=== PATIENT | female | born 1990 | race American Indian/Alaskan Native ===

== ENCOUNTER 2018-12-16 08:27 | Emergency (ER) | payer OTHER ==
[2018-12-16 08:35] VITALS: BP 117/56
--- NOTE | 2018-12-16 09:32 | Emergency Department Report ---
Vomiting/Diarrhea - HPI Chief Complaint: Nausea/Vomiting/Diarrhea Stated Complaint: 11 WKS /LIGHT HEAD/N Duration: 1 Day Severity: mild Nausea/Vomiting Severity: Mild Diarrhea Severity: None Pain Severity: None Symptoms: Yes Able to Tolerate Fluids, No Watery Diarrhea, No Bloody diarrhea, No Fever, No Recent Unusual Foods, No Recent Untreated Water, No Recent use of Antibiotics, No Family w/ Similar Symptoms, No Contacts w/ Similar Symptoms, No Rash, No Hematuria, No Recent URI Symptoms Other History: This is a 28 year-old female who presents to the emergency room with nausea and lightheadedness since yesterday. Patient states she woke feeling worse than yesterday. Patient reports she is 11 weeks and followed by [facility]. Last menstrual period 09/13, . She denies vomiting, vaginal discharge, vaginal bleeding, chest pain, abdominal pain, or back pain. ED Review of Systems ROS: Stated complaint: 11 WKS /LIGHT HEAD/N Other details as noted in HPI Constitutional: denies: chills, fever Respiratory: denies: cough, shortness of breath, wheezing Cardiovascular: denies: chest pain, palpitations Gastrointestinal: nausea. denies: abdominal pain, vomiting, diarrhea Musculoskeletal: denies: back pain, joint swelling, arthralgia Skin: denies: rash, lesions Neurological: denies: headache, weakness, paresthesias Psychiatric: denies: anxiety, depression ED Past Medical Hx - Past Medical History Previous Medical History?: No - Surgical History Past Surgical History?: No - Social History Smoking Status: Never Smoker Substance Use Type: None - Medications Home Medications: Home Medications Medication Instructions Recorded Confirmed Last Taken Type Nitrofurantoin [place]/M-Cryst 100 mg PO Q12HR #10 capsule 12/16/18 Unknown Rx [Macrobid CAP] Ondansetron [Zofran Odt] 4 mg PO Q8HR PRN #20 tab.rapdis 12/16/18 Unknown Rx Vomiting Diarrhea Exam - Exam General: Vital signs noted. No distress. Alert and acting appropriately. HEENT: Yes Moist Mucous Membranes, No Pharyngeal Erythema, No Pharyngeal Exudates, No Rhinorrhea, No Conjuctival Injection, No Frontal Tenderness, No Maxillary Tenderness Neck: No Adenopathy, No Rigidity Lungs: Yes Clear Lung Sounds, Yes Good Air Exchange, No Wheezes, No Stridor, No Cough, No Nasal Flaring, No Retractions, No Use of Accessory Muscles Heart exam: Regular: Yes, Murmur: No, Tachycardia: No Abdomen: Tenderness: No, Peritoneal Signs: No, Distention: No, Hyperactive Bowel sounds: No Skin exam: Rash: No, Edema: No, Normal turgor: Yes Neurologic: Alert and oriented, no deficits. Musculoskeletal: Unremarkable. ED Course Vital Signs 12/16/18 08:33 Temperature 98.3 F Pulse Rate 91 H Respiratory 16 Rate Blood Pressure 117/56 O2 Sat by Pulse 95 Oximetry ED Medical Decision Making - Lab Data Result diagrams: 12/16/18 09:37 12/16/18 09:37 Lab Results 12/16/18 12/16/18 12/16/18 Range/Units 09:19 09:37 09:37 WBC 8.3 (4.5-11.0) K/mm3 RBC 3.89 (3.65-5.03) M/mm3 Hgb 11.9 (10.1-14.3) gm/dl Hct 35.1 (30.3-42.9) % MCV 90 (79-97) fl MCH 31 (28-32) pg MCHC 34 (30-34) % RDW 14.4 (13.2-15.2) % Plt Count 248 (140-440) K/mm3 Sodium 138 (137-145) mmol/L Potassium 3.8 (3.6-5.0) mmol/L Chloride 101.1 (98-107) mmol/L Carbon Dioxide 22 (22-30) mmol/L Anion Gap 19 mmol/L BUN 10 (7-17) mg/dL Creatinine 0.5 L (0.7-1.2) mg/dL Estimated GFR > 60 ml/min BUN/Creatinine Ratio 20 % Glucose 89 (65-100) mg/dL Calcium 8.9 (8.4-10.2) mg/dL HCG, Quant (0-4) mIU/mL Urine Color Yellow (Yellow) Urine Turbidity Slightly-cloudy (Clear) Urine pH 6.0 (5.0-7.0) Ur Specific [place] 1.011 (1.003-1.030) Urine Protein <15 mg/dl (Negative) mg/dL Urine Glucose (UA) Neg (Negative) mg/dL Urine Ketones Neg (Negative) mg/dL Urine Blood Sm (Negative) Urine Nitrite Neg (Negative) Urine Bilirubin Neg (Negative) Urine Urobilinogen < 2.0 (<2.0) mg/dL Ur Leukocyte Esterase Lg (Negative) Urine WBC (Auto) 2.0 (0.0-6.0) /HPF Urine RBC (Auto) 7.0 (0.0-6.0) /HPF U Epithel Cells (Auto) 2.0 (0-13.0) /HPF Urine Bacteria (Auto) 1+ (Negative) /HPF Urine Mucus Few /HPF Urine HCG, Qual Positive A (Negative) 12/16/18 Range/Units 09:37 WBC (4.5-11.0) K/mm3 RBC (3.65-5.03) M/mm3 Hgb (10.1-14.3) gm/dl Hct (30.3-42.9) % MCV (79-97) fl MCH (28-32) pg MCHC (30-34) % RDW (13.2-15.2) % Plt Count (140-440) K/mm3 Sodium (137-145) mmol/L Potassium (3.6-5.0) mmol/L Chloride (98-107) mmol/L Carbon Dioxide (22-30) mmol/L Anion Gap mmol/L BUN (7-17) mg/dL Creatinine (0.7-1.2) mg/dL Estimated GFR ml/min BUN/Creatinine Ratio % Glucose (65-100) mg/dL Calcium (8.4-10.2) mg/dL HCG, Quant 09432 H (0-4) mIU/mL Urine Color (Yellow) Urine Turbidity (Clear) Urine pH (5.0-7.0) Ur Specific [place] (1.003-1.030) Urine Protein (Negative) mg/dL Urine Glucose (UA) (Negative) mg/dL Urine Ketones (Negative) mg/dL Urine Blood (Negative) Urine Nitrite (Negative) Urine Bilirubin (Negative) Urine Urobilinogen (<2.0) mg/dL Ur Leukocyte Esterase (Negative) Urine WBC (Auto) (0.0-6.0) /HPF Urine RBC (Auto) (0.0-6.0) /HPF U Epithel Cells (Auto) (0-13.0) /HPF Urine Bacteria (Auto) (Negative) /HPF Urine Mucus /HPF Urine HCG, Qual (Negative) - Medical Decision Making Patient was examined by me. Vitals are normal and patient is in no acute distress. Obtained a urinalysis, BMP, CBC, hCG qual and quant. There is signs of possible early UTI. Patient will be treated with macrobid. Start zofran ODT for nausea during . Patient denies vaginal bleeding, vomiting, vaginal discharge, abdominal pain or back pain. There is no suspicion of threatened miscarriage. Patient informed of results. Follow-up with [facility] for continued care. Plan discussed with patient to discharge home and treat outpatient. He agrees with ER plan. Patient discharged home in stable condition. Follow up with PCP in 2-3 days. Critical care attestation.: If time is entered above; I have spent that time in minutes in the direct care of this critically ill patient, excluding procedure time. ED Disposition Clinical Impression: Nausea and vomiting during , Dizziness Acute cystitis during Qualifiers: Trimester: first trimester Qualified Code(s): O23.11 - Infections of bladder in , first trimester Disposition: DC- TO HOME OR SELFCARE Is pt being admited?: No Does the pt Need Aspirin: No Condition: Stable Instructions: Morning Sickness (ED), Urinary Tract Infection in Women (ED) Additional Instructions: Increase fluid intake to 1L to 2L daily. Complete full course of antibiotics as prescribed. Avoid drinking alcohol while taking antibiotics and for 24 hours after completion. Follow up with primary care provider in 2-3 days. Prescriptions: Nitrofurantoin [place]/M-Cryst [Macrobid CAP] 100 mg PO Q12HR #10 capsule Ondansetron [Zofran Odt] 4 mg PO Q8HR PRN #20 tab.rapdis PRN Reason: Nausea And Vomiting Referrals: TONIA MCKEON MD [Primary Care Provider] - 3-5 Days [facility] [Provider Group] - 3-5 Days [facility] [Provider Group] - 3-5 Days [facility] [Provider Group] - 3-5 Days Forms: Work/School Release Form(ED) Time of Disposition: 11:00
[2018-12-16 09:59] LABS: Hematocrit 35.1 % (30.3-42.9); Hemoglobin 11.9 gm/dl (10.1-14.3); Mean Corpuscular HGB Conc 34 % (30-34); Mean Corpuscular Volume 90 fl (79-97); Platelet Count 248 K/mm3 (140-440); Red Blood Count 3.89 M/mm3 (3.65-5.03); Red Cell Distribution Width 14.4 % (13.2-15.2)
[2018-12-16 10:20] LABS: BUN/Creatinine Ratio 20; Blood Urea Nitrogen 10 mg/dL (7-17); Calcium 8.9 mg/dL (8.4-10.2); Hemolysis Index 6
[2018-12-16] MEDS ORDERED: ZOFRAN ODT PO ONE (10:28)
[2018-12-16 10:39] LABS: Bacteria,Urine 1+ /HPF (Negative); Bilirubin,Urine NEG (Negative); Blood,Urine SM (Negative); Color,Urine Yellow (Yellow); Mucus,Urine FEW /HPF; Protein,Urine <15 mg/dL mg/dL (Negative); Urobilinogen,Urine < 2.0 mg/dL (<2.0)
[2018-12-16 10:41] LABS: HCG Qualitative,Urine Positive (Negative)
== END 2018-12-16 11:07 | disposition home or self-care (01) ==
LOC: ED 08:27
DX: O21.8 Other vomiting complicating pregnancy (principal); O23.11 Infections of bladder in pregnancy, first trimester; O26.891 Other specified pregnancy related conditions, first trimester; R42 Dizziness and giddiness; Z3A.11 11 weeks gestation of pregnancy
CPT/HCPCS: 36415; 80048; 81001; 81025; 84702; 85027; Q0162

== ENCOUNTER 2019-05-26 20:09 | Emergency (ER) | payer SELFPAY ==
[2019-05-26 20:22] VITALS: BP 126/63
== END 2019-05-26 21:45 | disposition left against medical advice (07) ==
LOC: ED 20:09
DX: R42 Dizziness and giddiness (principal); Z53.21 Procedure and treatment not carried out due to patient leaving prior to being seen by health care provider

== ENCOUNTER 2019-06-10 05:52 | Inpatient (IN) | payer MEDICAID, OTHER ==
[2019-06-10] MEDS: LACTATED RINGERS 1,000 ML IV SCH ×2 (06:20→07:24)
[2019-06-10] MEDS ORDERED: LACTATED RINGERS 2,000 ML ONE (06:50)
[2019-06-10] MEDS ORDERED: ceFAZolin/Water 2 GM/20 ML 2 GM/20 ML SYRINGE IV NR (07:00)
[2019-06-10] MEDS ORDERED: OXYTOCIN 20 UNIT/1000ML DRIP 20 UNITS/1,000 ML BAG IV SCH ×2 (07:00→09:00)
--- NOTE | 2019-06-10 07:09 | History and Physical Report ---
History of Present Illness Date of examination: 06/10/19 Date of admission: 06/10/19 05:52 Chief complaint: Primary C Section History of present illness: Pt is a 28yo BF EDC 07/03/19; EGA 36 5/7 weeks presents for Primary C Section due to complete placenta previa per [facility]. She received care at [facility] since 18 weeks and co-managed by [facility] for complete placenta. records are available and GBS is unknown. Past History Past Medical History: no pertinent history Past Surgical History: no surgical history Social history: no significant social history, single - Obstetrical History Expected Date of Delivery: 07/03/19 Actual Gestation: 36 Week(s) 5 Day(s) Medications and Allergies Allergies Allergy/AdvReac Type Severity Reaction Status Date / Time latex Allergy Hives Verified 06/10/19 06:52 Home Medications Medication Instructions Recorded Confirmed Last Taken Type Nitrofurantoin [place]/M-Cryst 100 mg PO Q12HR #10 capsule 12/16/18 Unknown Rx [Macrobid CAP] Ondansetron [Zofran Odt] 4 mg PO Q8HR PRN #20 tab.rapdis 12/16/18 Unknown Rx Active Meds: Active Medications Citric Acid/Sodium Citrate (Bicitra) 30 ml PO ONCE ONE Stop: 06/10/19 06:54 Famotidine (Pepcid) 20 mg IV ONCE ONE Stop: 06/10/19 06:54 Oxytocin/Sodium Chloride (Pitocin/Ns 20 Unit/1000ml Drip) 20 units in 1,000 mls @ 0 mls/hr IV TITR SAMATNHA Lactated Ringer's (Lactated Ringers) 1,000 mls @ 2,250 mls/hr IV PREOP SAMANTHA Stop: 06/11/19 07:27 Cefazolin Sodium (Ancef/Sterile Water 2 Gm/20 Ml) 2 gm in 20 mls @ 80 mls/hr IV PREOP NR; Protocol Metoclopramide HCl (Reglan) 10 mg IV ONCE ONE Stop: 06/10/19 06:54 Review of Systems All systems: negative - Physical Exam Breasts: Positive: deferred Cardiovascular: Regular rate Lungs: Positive: Clear to auscultation Abdomen: Positive: normal appearance Genitourinary (Female): Positive: normal external genitalia Vagina: Positive: normal moisture Uterus: Positive: enlarged Extremities: Positive: normal - Obstetrical FHR: category 1 Uterine Contraction Monitor Mode: External Uterine Contraction Pattern: Absent Results Result Diagrams: 06/10/19 07:05 All other labs normal. Assessment and Plan - Patient Problems (1) 36 weeks gestation of Onset Date: 06/10/19 Current Visit: Yes Status: Acute Plan to address problem: A: IUP @ 36 5/7 weeks Complete placenta previa P: Admit to L&D for Primary C Section Blood on Hold to OR (2) Placenta previa affecting delivery Onset Date: 06/10/19 Current Visit: Yes Status: Acute
[2019-06-10] MEDS ORDERED: METOCLOPRAMIDE 10 MG/2 ML INJ IV NR (07:15)
[2019-06-10] MEDS ORDERED: BICITRA ORAL LIQD 30ML PO NR (07:15)
[2019-06-10] MEDS ORDERED: FAMOTIDINE 20 MG/2 ML INJ IV NR (07:15)
[2019-06-10] MEDS ORDERED: OXYTOCIN 20 UNIT/1000ML DRIP 40,000 MILLIUNITS/2,000 ML BAG IV ONE (07:20)
[2019-06-10] MEDS ORDERED: METOCLOPRAMIDE 10 MG/2 ML INJ ONE (07:21)
[2019-06-10 07:22] LABS: Basophils % (Auto) 0.4 % (0.0-1.8); Eosinophils # (Auto) 0.4 K/mm3 (0.0-0.4); Hematocrit 34.4 % (30.3-42.9); Hemoglobin 11.4 gm/dl (10.1-14.3); Lymphocytes # (Auto) 2.1 K/mm3 (1.2-5.4); Lymphocytes % (Auto) 16.3 % (13.4-35.0); Mean Corpuscular HGB Conc 33 % (30-34); Mean Corpuscular Volume 90 fl (79-97); Monocytes # (Auto) 1.2 K/mm3 (0.0-0.8); Monocytes % (Auto) 9.4 % (0.0-7.3); Platelet Count 213 K/mm3 (140-440); Red Blood Count 3.82 M/mm3 (3.65-5.03); Red Cell Distribution Width 15.6 % (13.2-15.2)
--- NOTE | 2019-06-10 07:22 | Anesthesia Consultation ---
Anesthesia Consult and Med Hx Date of service: 06/10/19 - Airway Anesthetic Teeth Evaluation: Good ROM Head & Neck: Adequate Mental/Hyoid Distance: Adequate Mallampati Class: Class II Intubation Access Assessment: Good - Pulmonary Exam CTA: Yes - Cardiac Exam Cardiac Exam: RRR - Pre-Operative Health Status ASA Pre-Surgery Classification: ASA2 Proposed Anesthetic Plan: Spinal - Pulmonary Hx Asthma: No - Cardiovascular System Hx Hypertension: No - Central Nervous System Hx Seizures: No Hx Psychiatric Problems: No - Endocrine Hx Renal Disease: No Hx Hypothyroidism: No Hx Hyperthyroidism: No - Hematic Hx Anemia: Yes (stopped taking iron 1mth ago) Hx Sickle Cell Disease: No - Other Systems Hx Alcohol Use: No
--- NOTE | 2019-06-10 07:23 | Anesthesia Day of Surgery ---
Anesthesia Day of Surgery - Day of Surgery Patient Examined: Yes Patient H&P Reviewed: Yes Patient is NPO: Yes
[2019-06-10] MEDS ORDERED: DEXMEDETOMIDINE 200 MCG/2 ML VIAL IV ONE (07:28)
[2019-06-10] MEDS ORDERED: ONDANSETRON 4 MG/2 ML INJ IV PRN (08:00)
[2019-06-10] MEDS ORDERED: SODIUM CHLORIDE 0.9% 500 ML 500 ML IV NR (08:00)
[2019-06-10] MEDS ORDERED: PROMETHAZINE 25 MG TAB PO PRN (08:00)
[2019-06-10] MEDS ORDERED: HYDROmorphone 1 MG/1 ML INJ IV PRN (08:00)
[2019-06-10] MEDS ORDERED: fentaNYL-BUPIV 2 MCG/ML-0.125% 200 MCG/100 ML BAG EPIDURAL SCH (08:00)
[2019-06-10] MEDS ORDERED: PROMETHAZINE 25 MG RECT SUPP PR PRN (08:00)
[2019-06-10] MEDS ORDERED: NALOXONE 0.4 MG/1 ML INJ IV PRN ×2 (08:00→08:41)
[2019-06-10] MEDS ORDERED: SODIUM CHLORIDE 0.9% IRR 1,500 ML BOTTLE IR ONE (08:08)
[2019-06-10] MEDS ORDERED: WATER FOR IRRIG STERILE 1,500 ML BOTTLE IR ONE (08:08)
[2019-06-10] MEDS ORDERED: KETOROLAC 30 MG/1 ML INJ ONE (08:17)
[2019-06-10] MEDS ORDERED: PHENYLEPHRINE/NS 1,000 MCG/10 ML SYRINGE (OR USE) IV ONE (08:30)
--- NOTE | 2019-06-10 08:39 | Operative Report ---
Operative Report Operative Report: Date of procedure: 06/10/2019 Pre-operative diagnosis: 1. Intrauterine at 36 5/7 weeks 2. Compl ete placenta previa Post-operative diagnosis: Same Procedure name(s): Primary low transverse section Surgeon: Abdias Garcia MD Check Embosser: None Anesthesia: Spinal anesthesia by Chip Castro CRNA EBL: 500 mL's Findings: A 2850 gm female Apgars 7 at 1 minute 8 at 5 minutes. Normal uterus with small uterine fibroids. Normal tubes and ovaries bilaterally. Procedure: After the patient was prepped and draped in usual sterile fashion, and after satisfactory level of spinal anesthesia was obtained, the skin knife was used to make a transverse skin incision. The incision was incised down to layer of the fascia, which was nicked in the midline and extended laterally using the Bovie cautery. The rectus muscles were dissected off the rectus fascia both superiorly and inferiorly. The rectus bellies in the midline, and the peritoneum was entered under direct visualization. The peritoneal incision was extended superiorly and inferiorly, a bladder flap was created and the bladder blade was then placed. The uterus was scored in a curvilinear linear fashion, entered in the midline revealing clear amniotic fluid. The 's head was delivered onto the surgical field, and the oropharynx and nasopharynx were bulb suctioned. The rest of the infants body delivered and the cord was doubly clamped and cut and the was handed to the awaiting respiratory team. The placenta was manually removed from the uterus, and the uterus removed from its normal anatomical position. After gentle uterine lavage, the incision was inspected and found to be without extensions. It was therefore closed in 2 layers using 0 Vicryl suture in a running interlocking fashion, the second layer imbricating the first. After good hemostasis was achieved, copious amounts or irrigation was performed, and the gutters were suctioned free of blood and blood clots. The uterus was then returned to its normal anatomical position, and the peritoneum was re-approximated using 3-0 Vicryl suture in a running interlocking fashion, and then the rectus muscles were loosely re-approximated using 3-0 Vicryl suture in a [id number] configuration. The fascia was then re-approximated using 0 Vicryl suture in running interlocking fashion. The subcutaneous layer was made hemostatic using Bovie cautery, and the skin edges re-approximated using 4-0 Vicryl suture in a sub-cuticular fashion. Patient tolerated the procedure well was transported to recovery in stable condition.
[2019-06-10] MEDS ORDERED: ACETAMINOPHEN 325 MG TAB PO PRN (08:41)
[2019-06-10] MEDS ORDERED: LANOLIN/ZINC/DIMETHICONE (LANSINOH) 7 GM TP PRN (08:41)
[2019-06-10] MEDS ORDERED: KETOROLAC 30 MG/1 ML INJ IV PRN (08:41)
[2019-06-10] MEDS ORDERED: WITCH HAZEL/ GLYCERIN PAD TP PRN (08:41)
[2019-06-10] MEDS ORDERED: SIMETHICONE 80 MG CHEW TAB PO PRN (08:41)
[2019-06-10] MEDS ORDERED: MAGNESIUM HYDROXIDE (MOM) ORAL LIQD UDC PO PRN (08:41)
[2019-06-10] MEDS ORDERED: HYDROcodone/ACETAMINOPHEN 5-325 MG TAB PO PRN (08:41)
[2019-06-10] MEDS ORDERED: SENNOSIDES 8.6 MG TAB PO PRN (08:41)
[2019-06-10] MEDS ORDERED: D5W/LACTATED RINGERS 1,000 ML IV SCH (09:00)
--- NOTE | 2019-06-10 09:06 | Post Anesthesia Evaluation ---
- Post Anesthesia Evaluation Patient Participated: Yes Airway Patent: Yes Stable Respiratory Function: Yes Nausea/Vomiting: No Temp > 96.8F: Yes Pain Manageable: Yes Adequeate Hydration: Yes Anesthesia Complications: No Block Receding Appropriately: Yes Patient on Ventilator: No
[2019-06-10] MEDS: HYDROmorphone 1 MG/1 ML INJ IV PRN ×2 (13:46→19:49)
[2019-06-10] MEDS: ceFAZolin/NS 1 GM/50 ML 1 GM/50 ML BAG IV SCH (16:00)
[2019-06-10 20:40] LABS: Hemoglobin 9.6 gm/dl (10.1-14.3)
[2019-06-10] MEDS: oxyCODONE /ACETAMINOPHEN 5-325MG TAB PO PRN (21:08)
[2019-06-11] MEDS: ceFAZolin/NS 1 GM/50 ML 1 GM/50 ML BAG IV SCH (00:09)
[2019-06-11] MEDS: oxyCODONE /ACETAMINOPHEN 5-325MG TAB PO PRN ×4 (03:06→21:01)
[2019-06-11] MEDS ORDERED: MEASLES, MUMPS & RUBELLA 12,500 UNIT/0.5 ML VACCINE SUB-Q ONE (06:00)
[2019-06-11] MEDS ORDERED: TETANUS,DIPH,PERTUSS(ACELL) VACCINE 0.5 ML SYRINGE IM ONE (06:00)
--- NOTE | 2019-06-11 08:53 | Progress Note ---
Assessment and Plan - Patient Problems (1) 36 weeks gestation of Onset Date: 06/10/19 Current Visit: Yes Status: Resolved (2) Placenta previa affecting delivery Onset Date: 06/10/19 Current Visit: Yes Status: Resolved (3) Status post Onset Date: 06/11/19 Current Visit: Yes Status: Resolved Plan to address problem: A: S/P C Section - POD #1 Doing well Asymptomatic anemia - stable P: Continue RPOC Anticipate discharge in 24-48hrs (4) Acute blood loss anemia Onset Date: 06/11/19 Current Visit: Yes Status: Resolved Subjective - Subjective Date of service: 06/11/19 Principal diagnosis: s/p C Section - POD #1 Interval history: Pt is feeling well without complaints. Bleeding improved. Baby in NICU. Patient reports: appetite normal, voiding normally, pain well controlled, ambulating normally, no dizzy ambulation, no flatus, no nauseated [place]: doing well, in NICU Objective - Vital Signs Latest vital signs: Vital Signs Temp Pulse Resp BP BP Pulse Ox 06/11/19 00:21 97.9 F 69 18 109/69 96 06/10/19 20:20 97.9 F 73 18 103/58 94 06/10/19 17:15 97.5 F L 90 18 109/67 96 06/10/19 10:39 98.1 F 85 18 108/66 100 06/10/19 10:10 98.6 F 90 20 100/59 100 06/10/19 10:00 86 18 104/64 100 06/10/19 09:45 89 17 112/58 99 06/10/19 09:30 85 16 108/63 99 06/10/19 09:15 85 17 100/50 98 06/10/19 09:10 75 19 99/46 98 06/10/19 09:05 75 19 99/46 98 06/10/19 09:00 83 18 95/47 98 06/10/19 08:55 97.8 F 93 H 15 102/58 98 Intake and Output 06/10/19 06/11/19 06/11/19 22:59 06:59 14:59 Intake Total 991.667 600 Output Total 1400 1999 Balance -408.333 -1400 Intake: IV 991.667 ANCEF/NS 1 GM/50 ML 1 gm 50 In 50 ml @ 100 mls/hr IV Q8H SAMANTHA Rx#:[id number] D5lr 1,000 ml @ 125 mls/ 941.667 hr IV DIRECT SAMANTHA Rx#: [id number] Oral 600 Output: Urine 1400 2000 Indwelling Catheter 800 600 Void 600 1400 Other: Total, Intake Amount 600 Total, Output Amount 600 1500 # Voids Indwelling Catheter 900 3 Void 1 2 - Exam Breasts: Present: deferred Abdomen: Present: normal appearance, soft Uterus: Present: normal, firm, fundal height below umbilicus Extremities: Present: normal Incision: Present: normal, dry, intact, dressed - Labs Labs: Abnormal lab results 06/10/19 06/10/19 Range/Units 07:05 20:24 Hgb 9.6 L (10.1-14.3) gm/dl Hct 29.0 L (30.3-42.9) % Crossmatch See Detail Laboratory Tests 06/10/19 06/10/19 06/10/19 07:05 07:05 07:05 WBC 12.7 H RBC 3.82 Hgb 11.4 Hct 34.4 MCV 90 MCH 30 MCHC 33 RDW 15.6 H Plt Count 213 Lymph % (Auto) 16.3 [place] % (Auto) 9.4 H Eos % (Auto) 3.0 Baso % (Auto) 0.4 Lymph # 2.1 [place] # 1.2 H Eos # 0.4 Baso # 0.0 Seg Neutrophils % 70.9 H Seg Neutrophils # 9.0 H Syphilis IgG Antibody Non-reactive Hep Bs Antigen Blood Type A POSITIVE Antibody Screen Negative Crossmatch See Detail 06/10/19 06/10/19 15:39 20:24 WBC RBC Hgb 9.6 L Hct 29.0 L MCV MCH MCHC RDW Plt Count Lymph % (Auto) [place] % (Auto) Eos % (Auto) Baso % (Auto) Lymph # [place] # Eos # Baso # Seg Neutrophils % Seg Neutrophils # Syphilis IgG Antibody Hep Bs Antigen Non-reactive Blood Type Antibody Screen Crossmatch
[2019-06-11] MEDS: PRENATAL VIT27-FE FUMARATE-FOLIC ACID VIT TAB PO SCH (10:07)
[2019-06-11] MEDS: IBUPROFEN 800 MG TAB PO PRN (23:30)
[2019-06-12] MEDS: oxyCODONE /ACETAMINOPHEN 5-325MG TAB PO PRN (03:14)
[2019-06-12] MEDS: IBUPROFEN 800 MG TAB PO PRN (05:09)
[2019-06-12] MEDS: FERROUS SULFATE 325 MG TAB PO SCH ×2 (10:00→10:26)
[2019-06-12] MEDS: PRENATAL VIT27-FE FUMARATE-FOLIC ACID VIT TAB PO SCH (10:26)
--- NOTE | 2019-06-12 14:23 | Progress Note ---
Assessment and Plan (1) 36 weeks gestation of Onset Date: 06/10/19 Current Visit: Yes Status: Resolved (2) Placenta previa affecting delivery Onset Date: 06/10/19 Current Visit: Yes Status: Resolved (3) Status post Onset Date: 06/11/19 Current Visit: Yes Status: Resolved Plan to address problem: A: S/P C Section - POD #2 Doing well Asymptomatic anemia - stable P: Continue RPOC Anticipate discharge in 24-48 hrs (4) Acute blood loss anemia Onset Date: 06/11/19 Current Visit: Yes Status: Resolved Subjective - Subjective Date of service: 06/12/19 Principal diagnosis: s/p C Section - POD #2 Patient reports: appetite normal, voiding normally, pain well controlled, flatus, ambulating normally : doing well, bottle feeding Objective - Vital Signs Latest vital signs: Vital Signs Temp Pulse Resp BP BP BP Pulse Ox 06/12/19 08:37 98.2 F 90 20 110/60 94 06/12/19 05:09 18 06/12/19 03:14 18 06/12/19 00:26 98.0 F 82 18 109/64 96 06/11/19 23:30 18 06/11/19 22:29 98.6 F 79 20 108/60 97 06/11/19 21:01 18 06/11/19 16:26 97.4 F L 84 18 111/54 Intake and Output 06/11/19 06/12/19 06/12/19 23:59 07:59 15:59 Intake Total 480 120 Balance 480 120 Intake: Oral 480 120 Other: Total, Intake Amount 480 120 - Exam Breasts: Present: normal Cardiovascular: Present: Regular rate, Normal S1, Normal S2, No murmurs Lungs: Present: Clear to auscultation, Normal air movement Abdomen: Present: normal appearance, soft, normal bowel sounds Uterus: Present: firm, fundal height at umbilicus Extremities: Present: normal Deep Tendon Reflex Grade: Normal +2 Incision: Present: normal, dry, intact, dressed (Steri strips CDI)
--- NOTE | 2019-06-12 14:25 | Discharge Summary ---
Providers - Providers Date of Admission: 06/10/19 05:52 Date of discharge: 06/13/19 Attending physician: ALDAIR LAUREN Primary care physician: ALDAIR LAUREN Hospitalization Reason for admission: section Delivery: Procedure: primary low transverse Procedure details: See operative note Incision: normal, dry, intact, dressed (Steri strips CDI) Other procedures: none complications: none Discharge diagnosis: IUP at term delivered [place] baby: female Condition at discharge: Good Disposition: DC-01 TO HOME OR SELFCARE Plan - Provider Discharge Summary Activity: routine, no sex for 6 weeks, no heavy lifting 4 weeks, no strenuous exercise Diet: routine Instructions: routine Additional instructions: [] Smoking cessation referral if applicable(refer to patient education folder for contact #) [] Refer to [facility]'s [facility] Booklet Call your doctor immediately for: * Fever > 100.5 * Heavy vaginal bleeding ( >1 pad per hour) * Severe persistent headache * Shortness of breath * Reddened, hot, painful area to leg or breast * Drainage or odor from incision. * Keep incision clean and dry at all times and follow doctor's instructions regarding bathing/showering - Follow up plan Follow up: ALDAIR LAUREN MD [Primary Care Provider] - 7 Days
[2019-06-12 16:16] VITALS: BP 106/54
== END 2019-06-12 18:30 | disposition home or self-care (01) | DRG 765 ==
LOC: APU 05:52 → OB 10:42
PROVIDERS: ADMIT Obstetrics & Gynecology; ATTEND Obstetrics & Gynecology
PROC: 10D00Z1 Extraction of Products of Conception, Low, Open Approach (ICD-10-PCS; principal; 2019-06-10)
PROC: 3E0234Z Introduction of Serum, Toxoid and Vaccine into Muscle, Percutaneous Approach (ICD-10-PCS; 2019-06-11)
PROC: 3E0134Z Introduction of Serum, Toxoid and Vaccine into Subcutaneous Tissue, Percutaneous Approach (ICD-10-PCS; 2019-06-11)
DX: O44.03 Complete placenta previa NOS or without hemorrhage, third trimester (principal); D62 Acute posthemorrhagic anemia; O99.02 Anemia complicating childbirth; Z3A.36 36 weeks gestation of pregnancy; Z37.0 Single live birth; Z23 Encounter for immunization; Z91.040 Latex allergy status; Z79.899 Other long term (current) drug therapy
CPT/HCPCS: 36415; 85014; 85018; 85025; 86592; 86706; 86850; 86900; 86901; 86920; G0378; A6250; J0690; J1170; J1885; J2370; J2405; J2590; J2765; J3490; J7120; J7121